=== PATIENT | male | born 1950 | race Caucasian/White ===

== ENCOUNTER 2016-06-08 08:13 | Inpatient (IN) | payer OTHER ==
--- NOTE | 2016-06-06 17:15 | GHP ---
[f rep st] PREOP HISTORY AND PHYSICAL DATE OF ADMISSION: 06/08/2016 PROBLEM: Right hip avascular necrosis. HISTORY OF PRESENT ILLNESS: The patient is a 66-year-old male who will be admitted for a right total hip arthroplasty with Dr. Banks. The patient first developed pain in the right hip in October 2015. He was seen by Dr. Jorge Barnes and by Dr. Carroll Lawrence. 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 In 2005 , he had renal failure secondary to systemic lupus and was on large doses of prednisone for about 6 m onths. He is having daily pain and mild nighttime pain. Walking has become very painful, and his ac tivities are severely limited. He is no longer able to ski. He does not have trouble putting on stanley es or socks on the right side and has not had any cortisone injections. He has not tried any formal physical therapy, but he exercises on a regular basis. Because of his progressive pain and advanced AVN, he has elected to proceed with a right total hip arthroplasty. PAST MEDICAL HISTORY: Pertinent for systemic lupus erythematosus. No history of MRSA, DVT, PE or CA D. CURRENT MEDICATIONS: Acai capsules, [id number], cinnamon, CLA, CoQ-10 enzyme, creatine, DHEA , fish oil, glucosamine, probiotic, resveratrol 100 mg, simvastatin 20 mg, vitamin C, vitamin D, lian min E and zinc. MEDICATION ALLERGIES: He has no known drug allergies. No known metal allergies. FAMILY HISTORY: Noncontributory. SOCIAL HISTORY: The patient lives with others. No history of tobacco or alcohol use. 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 PHYSICAL EXAMINATION: GENERAL: He is an otherwise healthy-appearing 66-year-old male. VITALS: Hei ght 5 feet 11 inches tall, weight 190 pounds, BMI 26.5. HEENT: Head is normocephalic, atraumatic. Eyes are PERRLA. Conjunctivae and sclerae are clear. Mouth: He has good oral hygiene without any l oose teeth. LUNGS: Clear. HEART: Regular rate and rhythm; without murmurs, gallops or rubs. EXTR EMITIES: Pertinent findings are limited to the patient's right hip. He has full hip extension, 90 d egrees of flexion, 20 degrees of external rotation, 0-10 degrees of internal rotation, and 45 degrees of abduction. DIAGNOSTIC IMAGING: Recent x-rays taken of the patient's right hip show severe AVN and collapse of t he shape of his femoral head. Recent MRI confirms this is AVN. IMPRESSION ON ADMISSION: 1. Right hip avascular necrosis. 2. Left hip avascular necrosis, which is only moderately painful. PLAN: The plan will be for the patient to undergo a right total hip arthroplasty with Dr. Banks at the [facility] on June 07, 2016. The surgery has been described to the patient, i ncluding the risks, benefits and expectations. He understands the risk of sciatic nerve injury, infe ction, leg length discrepancy or hip dislocation. All his questions have been answered, and he conse nts to surgery here in the office. /[id number]/MODL
[~2016-06-08 08:13] MED LIST: ACETAMINOPHEN 325 MG TAB PO ONE; CEFAZOLIN 2 GM/DEXTR 100 ML IV ONE; CHLORHEXIDINE GLUC HIBICLENS 118 ML BTL TP ONE; DEXAMETHASONE 4 MG/ML VIAL IVP ONE; FAMOTIDINE 20 MG TAB PO ONE; POVIDONE-IODINE 20 ML in SODIUM CL IRRIG SOLUTION 500 ML IRR ONE; ROPI/epiNEPH/KETOROLAC JOINT COCKTAIL IU ONE; SKIN ADHESIVE (DERMABOND) 1 EACH TP ONE; TRANEXAMIC ACID 1,700 MG in NS 100 ML IV ONE; ceFAZolin 1 GM/5 ML SYR ONE
[2016-06-08] MEDS ORDERED: LR 1,000 ML IV ONE (08:49)
[2016-06-08] MEDS ORDERED: LIDOCAINE 1% 5 ML SDV ID PRN (08:49)
[2016-06-08] MEDS ORDERED: ACETAMINOPHEN 325 MG TAB ONE (08:54)
[2016-06-08] MEDS ORDERED: DEXAMETHASONE 4 MG/ML VIAL ONE (08:55)
[2016-06-08] MEDS ORDERED: CEFAZOLIN 2 GM/DEXTROSE/100 ML BAG IV ONE (08:55)
[2016-06-08] MEDS ORDERED: FAMOTIDINE 20 MG TAB ONE (08:56)
[2016-06-08] MEDS ORDERED: MIDAZOLAM 2 MG/2 ML VIAL ONE ×2 (09:25→09:53)
[2016-06-08] MEDS ORDERED: LIDOCAINE 2% 5 ML SDV ONE (09:25)
[2016-06-08] MEDS ORDERED: PROPOFOL/EMULSION 500 MG/50 ML BOTTLE IV ONE (09:25)
[2016-06-08] MEDS ORDERED: epHEDrine SULFATE 10 MG/ML SYR ONE (09:46)
--- NOTE | 2016-06-08 10:59 | POSTOPPROG ---
Post Op Note Date of Operation: 06/08/16 Surgeon: Vladimir Banks Casino Assistant Manager: Cruzito/Godwin Anesthesiologist: Baljinder Anesthesia: IV Sedation, Spinal Post-op Diagnosis: R hip arthritis Procedure: R OSCAR Inf/Abcess present in the surg proc area at time of surgery?: No EBL: [id number]
[2016-06-08] MEDS ORDERED: POLYETHYLENE GLYCOL 3350 17 GM PKT PO PRN (11:10)
[2016-06-08] MEDS ORDERED: METOCLOPRAMIDE 10 MG/2 ML VIAL IVP PRN (11:10)
[2016-06-08] MEDS ORDERED: CYCLOBENZAPRINE 10 MG TAB PO PRN (11:10)
[2016-06-08] MEDS ORDERED: DIPHENOXYLATE/ATROPINE LOMOTIL 1 TAB PO PRN (11:10)
[2016-06-08] MEDS ORDERED: BISACODYL 10 MG SUPP PR PRN (11:10)
[2016-06-08] MEDS ORDERED: diphenhydrAMINE 25 MG CAP PO PRN (11:10)
[2016-06-08] MEDS ORDERED: TEMAZEPAM 15 MG CAP PO PRN (11:10)
[2016-06-08] MEDS ORDERED: PHARMACY PAIN CONSULT 1 EA MISC PRN (11:10)
[2016-06-08] MEDS ORDERED: LACTULOSE 20 GM/30 ML UDCUP PO PRN (11:10)
[2016-06-08] MEDS ORDERED: MAGNESIUM HYDROXIDE 30 ML UDCUP PO PRN (11:10)
[2016-06-08] MEDS ORDERED: KETOROLAC 30 MG/1 ML SDV IVP PRN (11:10)
[2016-06-08] MEDS ORDERED: PROMETHAZINE HCL 25 MG/ML INJ IVP PRN (11:10)
[2016-06-08] MEDS ORDERED: PROMETHAZINE HCL 25 MG SUPPR PR PRN (11:10)
[2016-06-08] MEDS ORDERED: NS 500 ML IV PRN (11:10)
[2016-06-08] MEDS ORDERED: traMADol 50 MG TAB PO PRN (11:10)
[2016-06-08] MEDS ORDERED: ONDANSETRON DISINTEGRATING 4 MG TAB PO PRN (11:10)
[2016-06-08] MEDS ORDERED: ONDANSETRON 4 MG/2 ML VIAL IVP PRN (11:10)
--- NOTE | 2016-06-08 11:45 | DX ---
Single view pelvis at 1133 hours HISTORY: Right total hip arthroplasty. FINDINGS: Right total hip arthroplasty appears in anatomical alignment. No significant degenerative c hanges of the left hip. IMPRESSION: Right total hip arthroplasty appears in anatomic alignment.
--- NOTE | 2016-06-08 12:17 | GOP ---
[f rep st] OPERATIVE REPORT DATE OF OPERATION: 06/08/2016 SURGEON: Vladimir Banks MD SHOVEL ENGINEER: 1. Papi East, PAC. 2. Sky Connelly CFA. ANESTHESIA: Marcaine spinal and IV sedation. ANESTHESIOLOGIST: Shannan Gale MD. PREOPERATIVE DIAGNOSIS: Right hip avascular necrosis and degenerative arthritis. POSTOPERATIVE DIAGNOSIS: Right hip avascular necrosis and degenerative arthritis. PROCEDURE PERFORMED: Right total hip arthroplasty, Oxinium femoral head on highly cross-linked polye thylene cup liner. FINDINGS: DESCRIPTION OF PROCEDURE: The patient was given 2 g of preoperative IV Ancef within 60 minutes of woods rgery. He also received IV tranexamic acid at a dose of 20 mg/kg. He was placed on the operating ro om table and given spinal anesthesia with Marcaine by Dr. Gale. He was then placed supine and give n IV sedation. A Renae catheter was not used. He wore a SHUN stocking and SCD on the nonoperative le g. He was rolled to the left lateral decubitus position. The position was secured with the pegboard table attachment. An axillary roll was used, and all pressure points were carefully padded. I was careful to lock his pelvis in a rigid vertical position. His perineum was isolated with plastic adhe sive drapes. The right hip and right lower extremity were prepped with ChloraPrep. They were draped free using sterile sheets, stockinette, and Ioban plastic drapes. The [employer] time-out was performed to verify the correct surgical side and the [facility] patient identity. The [place] time-out was also performed. I made a 5-inch straight oblique posterolateral hip skin incision. The subcutaneous tissues were sha rply divided and hemostasis was obtained using electrocautery. His fascia heike was identified and sp lit along the axis of its fibers. I then curved posteriorly and proximally, and split the fascia of the gluteus elder and bluntly split the muscle fibers in line with their orientation. The Charnley self-retaining retractor was inserted. His sciatic nerve was located, partially exposed, and protec shun throughout the procedure. The external rotators and the posterior hip capsule were divided as se parate layers at the base of the femoral neck, tagged, and reflected posteriorly. A smooth 8-inch [facility] pin was inserted vertically into the ilium superior to the acetabulum. An 1/8-inch drill bit was inserted vertically into the greater trochanter and parallel to the first pin. The distance bet alexanderen the 2 was measured for leg length reference. His femoral head was dislocated posteriorly. Carol re degenerative changes were present. I could see the indentation on the superior head where the hea d had collapsed secondary to the avascular necrosis. His femoral neck was osteotomized at the approp riate level and inclination. I was careful to preserve all the posterior capsule and most of the anterior capsule. The remnant of his badly damaged labrum was completely excised. I prepared the femur first. This allowed me to seed analyst the amount of natural femoral neck anteversion. This, in turn, allowed me to later determine the correct amount of cup anteversion. He had approxi mately 10 degrees of natural femoral neck anteversion. The canal was opened laterally with a box chi ciera. I reamed and broached sequentially up to size 15. I used a size 15 broach as a trial stem. I was careful to lateralize adequately. Appropriate retractors were inserted to expose the acetabulum. His acetabulum was reamed sequentiall y up to 57 mm. I selected a [employer] R3 solid-backed hemispherical shell. This was tapped s ecurely into place in the proper degree of inclination and anteversion. I had a very good view of hi s transverse acetabular ligament, and I aligned the acetabular component to match his anatomy. Suppl emental screw fixation was not necessary. I inserted a screw-in metal dome hole plug. I performed a series of trial reductions to determine length and stability. I concluded that the siz e 15 stem with a +4 mm neck length, a 36 mm head, and a flush trial liner gave me the proper combinat ion of appropriate length and good anterior and posterior stability. The flush [employer] R3 highly cross-linked polyethylene liner was inserted and tapped securely into place. I chose a [employer] Synergy stem in a size 15 with standard offset. This was in serted press-fit and was very tight. I did 1 final trial reduction and confirmed that the +4 mm neck length with a 36 mm head was the proper combination. I selected a [employer] Oxinium head wit h an outside diameter of 36 mm and a neck length of +4 mm. The head was tapped securely onto the darvin an trunnion. The acetabulum was irrigated, cleaned, and the hip was reduced 1 final time. He had ex cellent anterior and posterior stability and appropriate length. 40 mL of the joint anesthetic cocktail were injected into the capsule, the deep musculature and the s ubcutaneous tissues along the skin edges. The joint was thoroughly irrigated 1 final time with a dil ladonna Betadine solution. His sciatic nerve was reinspected and looked unharmed. The external rotators and the posterior hip capsule were repaired in separate layers with #2 FiberWire sutures through dri ll holes in the greater trochanter. This provided a strong posterior capsular and external rotator r epair. The fascia heike was closed first with 2 interrupted [id number] #2 FiberWire sutures foll owed by a running #2 barbed Ethicon Stratafix PDO suture. The subcutaneous tissues were closed with a running 0 barbed Ethicon Stratafix Monoderm suture. The skin was closed with a running 3-0 barbed Ethicon Stratafix Monoderm subcuticular suture. The skin edges were reapproximated and sealed with D ermabond glue. The wound was covered with a strip of Telfa, and everything was held in place with a piece of clear plastic Tegaderm. A long leg SHUN stocking and SCD were applied to his right lower extremity. He wore a stocking and SC D on the opposite leg during the procedure. An abduction pillow was placed between his knees. He wa s awakened from anesthesia and rolled to the supine position on his [facility]. He was taken to PACU in satisfactory condition. There were no recognized intraoperative complications. The estimat ed blood loss was about 300 mL. I used a [employer] R3 hemispherical solid-backed acetabular shell with an outside diameter of 58 mm. The liner was a [employer] R3 flush highly cross-linked liner with an inside diameter o f 36 mm. The femoral component was a press-fit Mccoll[employer]hew standard offset Synergy stem in a si ze 15. The femoral head was a [employer]hew Oxinium head with a +4 mm neck length and a 36 mm out side diameter. Nito East and Sky Connelly acted as surgical assistants. Their assistance was a medical necess ity. /[id number]/MODL
[2016-06-08] MEDS: ACETAMINOPHEN 325 MG TAB PO SCH ×3 (13:27→23:01)
[2016-06-08] MEDS: LR 1,000 ML IV SCH ×2 (13:56→22:58)
[2016-06-08] MEDS: ceFAZolin 2 GM in D5W 100 ML IV SCH ×2 (13:56→22:59)
[2016-06-08] MEDS: TRANEXAMIC ACID 650 MG TAB PO SCH ×3 (14:00→23:01)
[2016-06-08] MEDS ORDERED: ceFAZolin 2 GM/DEXTROSE 100 ML IV SCH (14:00)
[2016-06-08] MEDS: oxyCODONE IR 5 MG TAB PO PRN ×2 (16:09→19:52)
[2016-06-08] MEDS: FAMOTIDINE 20 MG TAB PO SCH (19:52)
[2016-06-08] MEDS: ASPIRIN 325 MG TAB PO SCH (19:52)
[2016-06-08] MEDS: SENNOSIDES/DOCUSATE SODIUM TAB PO SCH (19:55)
[2016-06-09] MEDS: oxyCODONE IR 5 MG TAB PO PRN ×4 (00:03→11:54)
[2016-06-09 04:49] LABS: HEMATOCRIT 36.5 % (40.0-51.0); HEMOGLOBIN 12.8 g/dL (13.7-17.5)
[2016-06-09] MEDS: ACETAMINOPHEN 325 MG TAB PO SCH ×2 (04:54→11:54)
--- NOTE | 2016-06-09 07:14 | SOAPPROG ---
SOAP Progress Note Assessment/Plan: Assessment: Afebrile. Awake and alert. Has been up and walking in [place]. Mild ortega. Dsg is dry. Sciatic nerve intact. H/H is good. Films look good. Plan: DC today. 06/09/16 07:13 Objective: Vital Signs Temp Pulse Resp BP Pulse Ox 36.6 C 52 L 16 138/73 H 97 06/09/16 04:49 06/09/16 04:49 06/09/16 04:49 06/09/16 04:49 06/09/16 04:49 Laboratory Results 06/09/16 04:29 06/08/16 06/09/16 06/10/16 05:59 05:59 05:59 Intake Total 3824 Output Total 1000 Balance 2824 ICD10 Worksheet Patient Problems: Problems Problem Status Diagnosed Osteoarthritis of right hip Acute
[2016-06-09 07:34] VITALS: O2SAT 95
--- NOTE | 2016-06-09 07:41 | GDS ---
[f rep st] DISCHARGE SUMMARY ADMISSION DIAGNOSIS: Right hip avascular necrosis and arthritis. DISCHARGE DIAGNOSIS: Right hip avascular necrosis and arthritis. OPERATIONS PERFORMED: On 06/08/2016, a right total hip arthroplasty, Oxinium femoral head on highly cross-linked polyethylene cup liner. POSTOPERATIVE COMPLICATIONS: None. CONDITION ON DISCHARGE: Improved. DESCRIPTION OF HOSPITAL COURSE: The patient was admitted to the hospital the morning of surgery. Hi s admission CBC, electrolytes, BUN, and creatinine were all normal. The same day under combination o f Marcaine spinal and IV sedation, he underwent a right total hip arthroplasty. Postoperatively, he was able to void spontaneously. He was treated with multimodal DVT prophylaxis, including aspirin. On the 1st postoperative day, his hemoglobin and hematocrit were 12.8 and 36.5. He was seen by [facility] and made excellent progress with ambulation and stairs. By the time of discharge, he was afebrile and was independent walking with a walker. DISPOSITION: The patient is discharged to his home. He may progress to full weightbearing as tolera shun. Use an abduction pillow in bed for 3 weeks. Use SHUN stockings for 1 week. Remain on aspirin 3 25 mg p.o. daily for 21 days. He will go to outpatient physical therapy in [place]. He has pres criptions for oxycodone and tramadol for pain control. I will see him back in the office on June 27, 2016. If there any problems, he is to call me at the office. /[id number]/MODL
[2016-06-09] MEDS: FAMOTIDINE 20 MG TAB PO SCH (08:25)
[2016-06-09] MEDS: TRANEXAMIC ACID 650 MG TAB PO SCH (08:26)
[2016-06-09] MEDS: ASPIRIN 325 MG TAB PO SCH (08:26)
[2016-06-09] MEDS ORDERED: Herbals/Supplements -Info Only PO SCH (09:00)
[2016-06-09] MEDS ORDERED: ASCORBIC ACID 500 MG TAB PO SCH (09:00)
[2016-06-09] MEDS ORDERED: DHA PO SCH (09:00)
[2016-06-09] MEDS ORDERED: OMEGA-3 FATTY ACIDS 1,000 MG CAP PO SCH (09:00)
[2016-06-09] MEDS ORDERED: NON-FORMULARY NEW DRUG (Cholecalciferol (Vitamin D3) [Vitamin D3] 5,000 UNIT) PO SCH (09:00)
[2016-06-09] MEDS ORDERED: FERROUS SULFATE 140 MG TAB.ER PO SCH (09:00)
[2016-06-09] MEDS ORDERED: EPA PO SCH (09:00)
[2016-06-09] MEDS ORDERED: OMEGA PO SCH (09:00)
[2016-06-09] MEDS ORDERED: FISH OIL PO SCH (09:00)
[2016-06-09] MEDS ORDERED: CHOLECALCIFEROL VIT D3 1,000 UNITS TAB PO SCH (09:00)
[2016-06-09] MEDS: SENNOSIDES/DOCUSATE SODIUM TAB PO SCH (09:38)
[2016-06-09 11:50] VITALS: BP 124/69; PULSE 62; RESP 16; TEMP 98.3
[2016-06-09] MEDS ORDERED: PNEUMOC 13-VAL CONJ-DIP CRM/PF 0.5 ML SYR IM ONE (13:09)
[2016-06-09] MEDS ORDERED: NON-FORMULARY NEW DRUG (Simvastatin [Zocor] 20 MG) PO SCH (21:00)
[2016-06-09] MEDS ORDERED: ATORVASTATIN CALCIUM 10 MG TAB PO SCH (21:00)
== END 2016-06-09 14:55 | disposition home or self-care (01) | DRG 470 ==
LOC: F3N 08:13
PROVIDERS: ADMIT Orthopaedic Surgery; ATTEND Orthopaedic Surgery
PROC: 0SR904Z Replacement of Right Hip Joint with Ceramic on Polyethylene Synthetic Substitute, Open Approach (ICD-10-PCS; principal; 2016-06-08 09:30)
DX: M16.11 Unilateral primary osteoarthritis, right hip (principal); M87.9 Osteonecrosis, unspecified; Z23 Encounter for immunization
CPT/HCPCS: 97110-GP; 97116-GP; 97161-GP; 97165-GO; G0009; G8978-GP-CJ; G8979-GP-CI; G8987-GO-CI; G8988-GO-CI; G8989-GO-CI; J0171; J0690; J1100; J1885; J2250; J2704; J2795

== ENCOUNTER → 2018-03-23 | Outpatient (CLI) | payer OTHER | LOC: FIMAGING 13:02 | PROVIDERS: ATTEND Orthopaedic Surgery | DX: M16.11 Unilateral primary osteoarthritis, right hip (principal) ==